=== PATIENT | female | born 1990 | race Hispanic/Latino ===

== ENCOUNTER 2022-03-13 15:47 | Day surgery (SDC) | payer BC ==
[2022-03-13 16:20] VITALS: BMI 40.6
[2022-03-13] MEDS ORDERED: hydrALAZINE 20 MG/ML VIAL SLOW IVP PRN (17:55)
[2022-03-13] MEDS ORDERED: Ursodiol 300 MG CAP PO SCH ×2 (17:57→18:15)
== END 2022-03-13 19:48 | disposition home or self-care (01) ==
LOC: CSHLD/OP 15:47
PROVIDERS: ATTEND Obstetrics & Gynecology
DX: O26.613 Liver and biliary tract disorders in pregnancy, third trimester (principal); K83.1 Obstruction of bile duct; O26.893 Other specified pregnancy related conditions, third trimester; L29.9 Pruritus, unspecified; Z3A.34 34 weeks gestation of pregnancy
CPT/HCPCS: 76819; 99282

== ENCOUNTER 2022-04-09 10:07 | Outpatient (CLI) | payer BC ==
[2022-04-09 11:32] LABS: Hemoglobin 12.4 g/dL (12.0-15.5); Platelet Count 223 10x3/uL (150-450)
[2022-04-09 12:03] LABS: Syphilis Antibody Nonreactive (Nonreactive); Syphilis Antibody Index 0.03 S/CO (<1.00 Non-Reactive)
[2022-04-09 12:22] LABS: Hep B Surf Ag Non-Reactive S/CO (NonReactive)
[2022-04-09 12:30] LABS: HBSAg Index 0.17 S/CO (0-0.99)
== END 2022-04-09 10:08 | disposition home or self-care (01) ==
LOC: CSHLAB 10:07
PROVIDERS: ATTEND Obstetrics & Gynecology
DX: Z01.812 Encounter for preprocedural laboratory examination (principal); Z20.822 Contact with and (suspected) exposure to COVID-19
CPT/HCPCS: 85014; 85018; 85049; 86780; 87340; U0003; U0005

== ENCOUNTER 2022-04-13 05:21 | Inpatient (IN) | payer BC ==
[2022-04-13 05:57] VITALS: BMI 41.5
[2022-04-13] MEDS ORDERED: ceFAZolin 2 GM/Dextrose 50 ML 2 GM in Premix Bag 1 BAG IVPB SCH (06:10)
[2022-04-13] MEDS ORDERED: Famotidine/PF 20 mg/2ml Vial SLOW IVP PRN (06:10)
[2022-04-13] MEDS ORDERED: Ondansetron PF 4 MG/2 ML Vial IVP PRN ×3 (06:10→11:12)
[2022-04-13] MEDS ORDERED: Bicitra 30 ML UDCUP PO PRN (06:10)
[2022-04-13] MEDS ORDERED: Promethazine HCl 25 MG/ML VIAL IM PRN ×3 (06:10→11:12)
[2022-04-13] MEDS ORDERED: hydrALAZINE 20 MG/ML VIAL SLOW IVP PRN ×2 (06:10→11:12)
[2022-04-13] MEDS ORDERED: Lactated Ringer's 1,000 ML IV SCH (06:30)
[2022-04-13] MEDS ORDERED: CEFAZOLIN 2 GM VIAL ONE (07:25)
[2022-04-13] MEDS ORDERED: Ketorolac Tromethamine 30 MG/ML VIAL IVP PRN (07:27)
[2022-04-13] MEDS ORDERED: Moisturizing Cream (Eucerin) 113 GM JAR TOP PRN (07:27)
[2022-04-13] MEDS ORDERED: Promethazine HCl 25 MG SUPP PR PRN (07:27)
[2022-04-13] MEDS ORDERED: Naloxone HCl 0.4 mg/ml Vial IVP PRN ×2 (07:27)
[2022-04-13] MEDS ORDERED: Naloxone HCl 0.4 mg/ml Vial IV PRN (07:27)
[2022-04-13] MEDS ORDERED: diphenhydrAMINE 50 MG/ML VIAL IVP PRN (07:27)
[2022-04-13] MEDS ORDERED: Communication Order-Pharmacy FS SCH (07:30)
[2022-04-13] MEDS ORDERED: CEFAZOLIN 2 GM in Sodium Chloride 0.9% 100 ML IVPB SCH (07:30)
[2022-04-13] MEDS ORDERED: Morphine PF 10 MG/10 ML VIAL ONE (07:36)
[2022-04-13] MEDS ORDERED: Fentanyl 100 MCG/2 ML VIAL ONE (07:37)
[2022-04-13] MEDS ORDERED: PHENYLEPHRINE-NS 100 MCG/ML 10 ML SYRINGE ONE (07:41)
[2022-04-13] MEDS ORDERED: Phenylephrine 40 MG/NS 250 ML 250 ML ONE (07:41)
[2022-04-13] MEDS ORDERED: Oxytocin 10 UNITS/ML VIAL ONE (07:41)
[2022-04-13] MEDS ORDERED: EPINEPHrine 1 MG/ML AMP ONE (07:41)
[2022-04-13] MEDS ORDERED: Lidocaine 2% MPF 10 ML AMP (For Epidural Use) ONE (07:53)
[2022-04-13] MEDS ORDERED: Benzocaine-Menthol 82.5 ML CAN TOP PRN (11:12)
[2022-04-13] MEDS ORDERED: Milk Of Magnesia 30 ML UDCUP PO PRN (11:12)
[2022-04-13] MEDS ORDERED: Misoprostol 200 MCG TAB VAG PRN (11:12)
[2022-04-13] MEDS ORDERED: Bisacodyl 10 MG SUPP PR PRN (11:12)
[2022-04-13] MEDS ORDERED: Lanolin Ointment 7 GM TUBE TOP PRN (11:12)
[2022-04-13] MEDS ORDERED: Boostrix 0.5 ML (Tdap) VIAL IM ONE (11:12)
[2022-04-13] MEDS ORDERED: Methylergonovine 0.2 MG/ML VIAL IM PRN (11:12)
[2022-04-13] MEDS ORDERED: NS w/ Oxytocin 30 units 500 ML IV SCH (11:12)
[2022-04-13] MEDS ORDERED: HYDROcodone/Acetaminophen 5/325 mg Tablet PO PRN (11:21)
[2022-04-13] MEDS: Ibuprofen 800 MG TAB PO SCH ×2 (15:54→21:36)
[2022-04-13] MEDS: Ferrous Sulfate 325 MG TAB PO SCH (15:54)
[2022-04-14] MEDS: Docusate 100 MG CAP PO SCH ×3 (01:13→21:04)
[2022-04-14] MEDS: HYDROcodone/Acetaminophen 5/325 mg Tablet PO PRN ×5 (01:13→18:24)
[2022-04-14 04:23] LABS: Hemoglobin 9.7 g/dL (12.0-15.5); Mean Corpuscular HGB CONC 33.2 g/dL (32.0-36.0); Mean Corpuscular Hemoglobin 26.8 pg (27.0-33.0); Mean Corpuscular Volume 80.7 fl (81.6-98.3); Mean Platelet Volume 11.3 fl (7.4-10.4); Platelet Count 190 10x3/uL (150-450); RBC Distribution Width 14.6 % (11.5-14.5); Red Blood Cell (RBC) Count 3.62 10x6/uL (3.90-5.03)
[2022-04-14] MEDS: Ibuprofen 800 MG TAB PO SCH ×3 (05:26→21:03)
[2022-04-14] MEDS: Prenatal Vitamin 1 TAB PO SCH (08:21)
[2022-04-14] MEDS: Ferrous Sulfate 325 MG TAB PO SCH ×2 (08:21→16:28)
[2022-04-15] MEDS: HYDROcodone/Acetaminophen 5/325 mg Tablet PO PRN ×3 (04:05→13:25)
[2022-04-15] MEDS: Ibuprofen 800 MG TAB PO SCH ×2 (06:09→13:26)
[2022-04-15 07:52] VITALS: BP 116/60; TEMP 97.9
[2022-04-15] MEDS: Docusate 100 MG CAP PO SCH (08:55)
[2022-04-15] MEDS: Prenatal Vitamin 1 TAB PO SCH (08:55)
[2022-04-15] MEDS: Ferrous Sulfate 325 MG TAB PO SCH (08:55)
== END 2022-04-15 13:55 | disposition home or self-care (01) | DRG 788 ==
LOC: CSHLD 05:21 → CSHPP 11:45
PROVIDERS: ADMIT Obstetrics & Gynecology; ATTEND Obstetrics & Gynecology
PROC: 10D00Z1 Extraction of Products of Conception, Low, Open Approach (ICD-10-PCS; principal; 2022-04-13)
DX: O34.211 Maternal care for low transverse scar from previous cesarean delivery (principal); Z3A.39 39 weeks gestation of pregnancy; Z37.0 Single live birth; O62.1 Secondary uterine inertia; O33.9 Maternal care for disproportion, unspecified; O32.8XX0 Maternal care for other malpresentation of fetus, not applicable or unspecified
CPT/HCPCS: 36415; 36416; 51702; 85027; 86850; 86900; 86901; J0171; J0690; J1885; J2274; J2405; J2550; J2590; J3010; J3490; S0028

== ENCOUNTER 2023-10-18 10:25 | Outpatient (CLI) | payer BC ==
[2023-10-18 12:09] LABS: BHCG - Serum Negative (NEGATIVE); Pregs Control Bar Appear? YES (CONTROL BAR)
[2023-10-18 12:10] LABS: Pregs Control Background? CLEAR/WHITE (CLR/WHITE)
== END 2023-10-18 10:26 | disposition home or self-care (01) ==
LOC: CSHLAB 10:25
PROVIDERS: ATTEND Surgery
DX: Z01.812 Encounter for preprocedural laboratory examination (principal); K80.80 Other cholelithiasis without obstruction
CPT/HCPCS: 84703

== ENCOUNTER 2023-10-20 05:57 | Day surgery (SDC) | payer BC ==
[2023-10-18 11:23] VITALS: BMI 38.4
[2023-10-20] MEDS ORDERED: Indocyanine Green 25 MG/10 ML VIAL ONE (06:19)
[2023-10-20] MEDS ORDERED: EPINEPHrine 1 MG/ML VIAL ONE (06:47)
[2023-10-20] MEDS ORDERED: Bupivacaine PF 0.5% 30 ML VIAL ONE (06:47)
[2023-10-20] MEDS ORDERED: CEFAZOLIN 2 GM VIAL ONE (07:03)
[2023-10-20] MEDS ORDERED: SUGAMMADEX SODIUM 200 MG/2 ML VIAL ONE (07:11)
[2023-10-20] MEDS ORDERED: HYDROmorphone 0.5 MG/0.5 ML SYRINGE ONE (07:11)
[2023-10-20] MEDS ORDERED: Famotidine/PF 20 mg/2ml Vial ONE (07:11)
[2023-10-20] MEDS ORDERED: fentaNYL 50 mcg/mL 1 mL Vial ONE ×2 (07:15→09:00)
[2023-10-20] MEDS ORDERED: Lidocaine 1% PF 5 ML VIAL ONE (07:15)
[2023-10-20] MEDS ORDERED: PROPOFOL 20 ML ONE (07:15)
[2023-10-20] MEDS ORDERED: Rocuronium Bromide 10 MG/ML (10ML VIAL) ONE (07:15)
[2023-10-20] MEDS ORDERED: Dexamethasone 20 MG/5 ML VIAL ONE (07:17)
[2023-10-20] MEDS ORDERED: Ondansetron PF 4 MG/2 ML Vial ONE ×2 (07:17→08:37)
[2023-10-20] MEDS ORDERED: Acetaminophen 325 MG TAB PO PRN (07:31)
[2023-10-20] MEDS ORDERED: HYDROcodone/Acetaminophen 5/325 mg Tablet PO PRN (07:31)
[2023-10-20] MEDS ORDERED: Ketorolac Tromethamine 30 MG (1 mL) VIAL ONE (07:54)
[2023-10-20] MEDS ORDERED: HYDROcodone/Acetaminophen 5/325 mg Tablet ONE (09:33)
== END 2023-10-20 10:40 | disposition home or self-care (01) ==
LOC: CSHSDC 05:57
PROVIDERS: ATTEND Surgery
PROC: 0FT44ZZ Resection of Gallbladder, Percutaneous Endoscopic Approach (ICD-10-PCS; principal; 2023-10-20)
DX: K80.10 Calculus of gallbladder with chronic cholecystitis without obstruction (principal); E66.01 Morbid (severe) obesity due to excess calories; Z68.38 Body mass index [BMI] 38.0-38.9, adult; Z79.899 Other long term (current) drug therapy
CPT/HCPCS: 88304; J0171; J0665; J1100; J1170; J1885; J2405; J2704; J3010; S0028